=== PATIENT | female | born 1930 | race Caucasian/White ===

== ENCOUNTER 2018-04-08 14:07 | Observation (INO) | payer OTHER ==
--- NOTE | 2018-04-08 14:24 | EDPHY ---
H & P Time Seen by Provider: 04/08/18 14:18 HPI/ROS: CHIEF COMPLAINT: Head injury HISTORY OF PRESENT ILLNESS: 87-year-old woman on warfarin arrives by EMS after losing her balance and falling and hitting her head. Her daughter who is here with her describes the patient losing her balance when transitioning from the walker to the car landing on the right side. She has a wound on her right forehead and pain in her right hip. No loss of consciousness. The daughter describes the patient is being confused. The patient says she has a little bit of a headache but it is very mild. Pain does not radiate. Does not have neck pain or weakness or numbness in extremities. REVIEW OF SYSTEMS: Eye: No double vision ENT: no sore throat Cardiac: no chest pain or syncope Pulmonary: Not short of breath Abdomen: No abdominal pain or vomiting Musculoskeletal: Left wrist is in a cast from a previous fracture Skin: Bruising on the right forehead Neuro: HPI Constitutional: no fever : no urinary symptoms A comprehensive 10 point review of systems is otherwise negative aside from elements mentioned in the history of present illness. PAST MEDICAL HISTORY: H&P dated 09/01/[address] Simpson. Includes atrial fibrillation on warfarin, CHF, hypertension, depression, hypothyroid. Bilateral total hip arthroplasties. Social history: Here with her daughter General Appearance: Alert and conversant, cooperative. Eyes: No scleral icterus. Pupils equal and reactive. ENT, Mouth: Normal mucous membranes. Right forehead hematoma. Respiratory: Normal respiratory effort, breath sounds equal, lungs are clear to auscultation. Cardiovascular: Regular rate and rhythm. Gastrointestinal: Abdomen is soft and non tender. Neurological: Alert, face symmetric, normal motor and sensory in extremities. Patient knows the year she is born but does not know what this year is or how old she is. Skin: Bruising over the right forehead and parietal region. Musculoskeletal: Left wrist in a cast. Good range of motion of both upper extremities and left lower extremity. Pelvis is stable. She has some pain in the right hip but it is not worse with axial loading or rotation. No other right lower extremity tenderness. No spinal tenderness cervical thoracic or lumbar. Psychiatric: Not agitated. Emergency Department course/MDM: Emergent CT head and cervical spine. Labs to include protime. Right hip x-ray. 1449: CT reviewed with Finer shows small subdural or other blood collection just under her scalp hematoma on the right. Discussed with Dr. Michel from Neurosurgery at this time. Patient is kept in a collar. 1458: Discussed results with patient and family, vitamin K and KCentra ordered from the reversal anticoagulation set. Reversal discussed and consented with the daughters. Admission to Trauma Service. 1504: Dr. Plasencia to admit. 1515: Right hip x-ray personally interpreted as negative for fracture or dislocation. Head of bed up 30 degrees, maintained a cervical collar. Smoking Status: Former smoker Constitutional: Initial Vital Signs Temperature (C) 36.6 C 04/08/18 14:07 Heart Rate 78 04/08/18 14:07 Respiratory Rate 17 04/08/18 14:07 Blood Pressure 180/109 H 04/08/18 14:07 O2 Sat (%) 92 04/08/18 14:07 O2 Delivery Mode Nasal Cannula O2 (L/minute) 2 Allergies/Adverse Reactions: lisinopril Allergy (Verified 04/08/18 14:24) Other-Enter Comments Home Medications: Medication Instructions Recorded Calcium Carb W/Vit D [Calcium Carb 500 mg PO DAILY 07/31/13 W/Vit D 500/200 (*)] Furosemide [Lasix 20 MG (*)] 20 mg PO DAILY 07/31/13 Levothyroxine [Synthroid 100 mcg 100 mcg PO DAILY06 07/31/13 (*)] Sertraline HCl [Zoloft 50mg (*)] 50 mg PO DAILY 07/31/13 Acetaminophen [Tylenol 325mg (*)] 650 mg PO Q6 PRN 09/01/16 Famotidine 20 mg PO DAILY 09/01/16 Losartan Potassium 50 mg PO DAILY 09/01/16 Metoprolol Tartrate 25 mg PO BID 09/01/16 Metoprolol Tartrate 100 mg PO BID 09/01/16 Warfarin Sodium [Coumadin 5MG (*)] 5 mg PO SUMOWEFR 09/01/16 Digoxin [Digox] 125 mcg PO DAILY 04/08/18 Furosemide [Lasix 40 MG (*)] 40 mg PO DAILY@12 04/08/18 Warfarin Sodium [Coumadin 5MG (*)] 2.5 mg PO TUTHSA 04/08/18 Medical Decision Making - Diagnostics EKG Interpretation: 12-lead EKG interpreted by me; official reading is in trace master. My interpretation is atrial fibrillation rate [address] depression. Imaging Results: Imaging Impressions Cervical Spine CT 04/08/18 14:22 Impression: 1. No acute abnormality seen about the cervical spine. 2. Previous bony fusion from C4 through C6 with marked degenerative disk disease above and below this. 3. Facet hypertrophy on the right at C2-C3 and bilaterally at C6-C7 and C7-T1. Findings discussed with Elias Posadas M.D. at 1450 hour, 04/08/2018. Head CT 04/08/18 14:22 Impression: 1. Increased density blood collection underlying the right temporal bone at the level of the sylvian fissure that could represent a tiny epidural hematoma versus small subdural hematoma collection. There is no associated fracture of the calvarium. 2. No hemorrhage, mass effect, or definite acute peripheral infarct. 3. Moderate nonspecific hypodensities in the white matter of bilateral cerebral hemispheres. Differential diagnosis includes microvascular ischemic disease, post-infectious/post-inflammatory sequela, atypical demyelinating disease, or migraine-related sequela. Small white matter lacunar infarcts may also have this appearance. 4. Moderate atrophy. If symptoms worsen, additional imaging may be necessary. Findings discussed with Elias Posadas M.D. at 1450 hour, 04/08/2018. Hip X-Ray 04/08/18 14:23 Impression: Nothing acute identified. Imaging: Discussed imaging studies w/ score caller Radiologist Differential Diagnosis: Differential diagnosis considered for head injury including but not limited to concussion, skull fracture, intraparenchymal contusion, subarachnoid, subdural and epidural hematoma. Critical Care Time: Critical care time spent by me, Dr. Posadas, exclusively with the care of this patient was 30 minutes, exclusive of PA or MICA MACHINE OPERATOR time and exclusive of separate procedures. The organ system at risk was neurologic and hematologic and I ordered emergent reversal of warfarin and consultation with Neurosurgery to stabilize the patient and prevent worsening of the patient's condition. - Data Points Laboratory Results: Laboratory Results 04/08/18 14:25 04/08/18 14:25 04/08/18 04/08/18 04/08/18 14:25 14:25 14:25 WBC 7.97 10^3/uL 10^3/uL (3.80-9.50) RBC 4.66 10^6/uL 10^6/uL (4.18-5.33) Hgb 14.7 g/dL g/dL (12.6-16.3) Hct 43.5 % % (38.0-47.0) MCV 93.3 fL fL (81.5-99.8) MCH 31.5 pg pg (27.9-34.1) MCHC 33.8 g/dL g/dL (32.4-36.7) RDW 14.8 % % (11.5-15.2) Plt Count 234 10^3/uL 10^3/uL (150-400) MPV 9.7 fL fL (8.7-11.7) Neut % (Auto) 55.4 % % (39.3-74.2) Lymph % (Auto) 31.0 % % (15.0-45.0) Shannon % (Auto) 10.2 % % (4.5-13.0) Eos % (Auto) 2.3 % % (0.6-7.6) Baso % (Auto) 0.5 % % (0.3-1.7) Nucleat RBC Rel Count 0.0 % % (0.0-0.2) Absolute Neuts (auto) 4.42 10^3/uL 10^3/uL (1.70-6.50) Absolute Lymphs (auto) 2.47 10^3/uL 10^3/uL (1.00-3.00) Absolute Monos (auto) 0.81 10^3/uL H 10^3/uL (0.30-0.80) Absolute Eos (auto) 0.18 10^3/uL 10^3/uL (0.03-0.40) Absolute Basos (auto) 0.04 10^3/uL 10^3/uL (0.02-0.10) Absolute Nucleated RBC 0.00 10^3/uL 10^3/uL (0-0.01) Immature Gran % 0.6 % % (0.0-1.1) Immature Gran # 0.05 10^3/uL 10^3/uL (0.00-0.10) PT 25.5 SEC H SEC (12.0-15.0) INR 2.32 H (0.83-1.16) APTT 34.4 SEC SEC (23.0-38.0) Sodium 142 mEq/L mEq/L (135-145) Potassium 4.3 mEq/L mEq/L (3.3-5.0) Chloride 105 mEq/L mEq/L (97-110) Carbon Dioxide 25 mEq/l mEq/l (22-31) Anion Gap 12 mEq/L mEq/L (8-16) BUN 22 mg/dL mg/dL (7-23) Creatinine 1.2 mg/dL H mg/dL (0.6-1.0) Estimated GFR 42 Glucose 92 mg/dL mg/dL (70-100) Calcium 9.2 mg/dL mg/dL (8.5-10.4) Patient ABO/Rh Antibody Screen 04/08/18 14:25 WBC RBC Hgb Hct MCV MCH MCHC RDW Plt Count MPV Neut % (Auto) Lymph % (Auto) Shannon % (Auto) Eos % (Auto) Baso % (Auto) Nucleat RBC Rel Count Absolute Neuts (auto) Absolute Lymphs (auto) Absolute Monos (auto) Absolute Eos (auto) Absolute Basos (auto) Absolute Nucleated RBC Immature Gran % Immature Gran # PT INR APTT Sodium Potassium Chloride Carbon Dioxide Anion Gap BUN Creatinine Estimated GFR Glucose Calcium Patient ABO/Rh A POSITIVE Antibody Screen NEGATIVE Medications Given: Discontinued Medications Prothrombin Complex Concent (Human) (Kcentra) 2,500 unit in 100 mls @ 0 mls/hr IV ONCE ONE; Per Protocol PRN Reason: Protocol Stop: 04/08/18 14:53 Last Admin: 04/08/18 15:44 Dose: 100 mls Phytonadione 10 mg/ Sodium (Chloride) 51 mls @ 102 mls/hr IV ONCE ONE Stop: 04/08/18 15:21 Last Admin: 04/08/18 15:15 Dose: 51 mls Departure - Departure Disposition: [facility] Acute Clinical Impression: Traumatic subdural hematoma Qualifiers: Encounter type: initial encounter Loss of consciousness presence/duration: without LOC Qualified Code(s): S06.5X0A - Traumatic subdural hemorrhage without loss of consciousness, initial encounter Condition: Serious
[2018-04-08 14:32] LABS: PLATELET COUNT 234 10^3/uL (150-400)
[2018-04-08 14:41] LABS: INR 2.32 (0.83-1.16); PROTIME(PATIENT) 25.5 SEC (12.0-15.0)
[2018-04-08] MEDS ORDERED: HUMAN PROTHROMBIN COMPLX(PCC) 2,500 UNIT/100 ML VIAL IV ONE (14:52)
[2018-04-08] MEDS ORDERED: PHYTONADIONE 10 MG in NS 50 ML IV ONE (14:52)
--- NOTE | 2018-04-08 14:57 | CPEKG ---
Heart Rate: 94 RR Interval: 638 QRSD Interval: 90 QT Interval: 392 QTC Interval: 491 QRS [place]: 23 T Wave [place]: 257 EKG Severity - ABNORMAL ECG - EKG Impression: ATRIAL FIBRILLATION EKG Impression: PROBABLE LVH WITH SECONDARY REPOL ABNRM EKG Impression: ST DEPRESSION, CONSIDER ISCHEMIA, ANT-LAT LDS EKG Impression: BORDERLINE PROLONGED QT INTERVAL Electronically Signed By: Elias Posadas 08-Apr-2018 15:11:23
[2018-04-08] MEDS: ACETAMINOPHEN 325 MG TAB PO PRN (18:50)
--- NOTE | 2018-04-08 19:08 | GCON ---
[f rep st] CONSULTATION NEUROSURGERY CONSULT DATE OF CONSULTATION: 04/08/2018 The patient was seen at approximately 3 p.m. in the emergency department at [facility]. HPI: The patient is an 87-year-old woman who is on Coumadin for atrial fibrillation, who arrived by EMS after losing her balance and falling, hitting her head on the floor. Her daughter is with her an d she said that she lost her balance when she was transitioning from her walker to the car. She had a fall last week and broke her left arm and likely was not holding onto the walker due to this. She hit her right forehead on the ground and had a brief loss of consciousness of less than [address] she woke up, she was a little bit confused, but otherwise completely normal. She currently has a very mild headache, but nothing of much significance. She denies any other neurologic symptoms. Walker davies has some pain in her left arm, but otherwise no symptoms. She had a CT in the emergency department , which showed a very small right temporal subdural hematoma without any mass effect or shift. She h as extensive cerebral atrophy. Her INR was 2.3. REVIEW OF SYSTEMS: A 10-point review of systems is negative other than described above in the HPI. PAST MEDICAL HISTORY: 1. Atrial fibrillation. 2. Congestive heart failure. 3. Hypertension. 4. Depression. 5. Hypothyroidism. 6. Bilateral total hip arthroplasties. SOCIAL HISTORY: The patient presents with her daughters. She is a lifelong nonsmoker and denies any alcohol or other drug use. FAMILY HISTORY: The family history is reviewed but is noncontributory to this admission. PHYSICAL EXAMINATION: VITAL SIGNS: Currently, she is afebrile with normal stable vital signs. GENE RAL: She is awake, alert, and oriented x3. NEUROLOGICAL: She does have to think a few seconds abou t some more specific questions, but otherwise is clearing completely. Her cranial nerves 2-12 are gr ossly normal. She has 5/5 strength in all muscle groups of the upper and lower extremities bilateral ly. The left wrist is in a cast from her previous fracture. Her sensation is normal and deep tendon reflexes are normal. IMAGING REVIEW: See HPI. LABORATORY REVIEW: White count is 7.9, hemoglobin 14.7, hematocrit is 43.5, platelet count is 234,00 0. Her INR is 2.3, PTT is 34.4. Sodium is 142, potassium 4.3, BUN is 22, creatinine 1.2, glucose is 92. ASSESSMENT/PLAN: The patient is an 87-year-old woman status post a fall from standing with a very sm all right temporal subdural hematoma. Given that she is on Coumadin, there is a small risk that this may increase in size, but overall it is unlikely. I agree with taking off Coumadin for about 7 days ' time and possibly some gentle reversal with vitamin K. I do not think anything more aggressive yasmin n this is necessary unless she should show any new signs or symptoms. Recommend repeating her CAT sc an in the morning to be sure that the bleed is stable, at which time if it is, she could be discharge d home from a neurosurgical standpoint. I would recommend to q.2 hour neuro checks until that time. Please call us with any further questions or concerns, and certainly any changes in her neurologic ex am. Thanks for the kind consult. Sincerely, /[id number]/JEFFERSON
[2018-04-08] MEDS ORDERED: ACETAMINOPHEN 325 MG TAB PO PRN (20:02)
[2018-04-08] MEDS: METOPROLOL TARTRATE 100 MG TAB PO SCH (21:05)
[2018-04-08] MEDS: METOPROLOL TARTRATE 25 MG TAB PO SCH (21:05)
[2018-04-09 05:22] LABS: PLATELET COUNT 214 10^3/uL (150-400)
[2018-04-09] MEDS: ACETAMINOPHEN 325 MG TAB PO PRN ×3 (05:39→20:41)
[2018-04-09] MEDS: LEVOTHYROXINE 100 MCG TAB PO SCH (05:40)
[2018-04-09 05:54] LABS: INR 1.05 (0.83-1.16); PROTIME(PATIENT) 13.9 SEC (12.0-15.0)
[2018-04-09] MEDS: DIGOXIN 125 MCG TAB PO SCH (09:48)
[2018-04-09] MEDS: FAMOTIDINE 20 MG TAB PO SCH (09:48)
[2018-04-09] MEDS: CALCIUM CARB W/VIT D 500 MG TAB PO SCH (09:49)
[2018-04-09] MEDS: SERTRALINE HCL 50 MG TAB PO SCH (09:49)
[2018-04-09] MEDS: FUROSEMIDE 20 MG TAB PO SCH (09:49)
[2018-04-09] MEDS: METOPROLOL TARTRATE 25 MG TAB PO SCH ×2 (09:50→20:10)
[2018-04-09] MEDS: METOPROLOL TARTRATE 100 MG TAB PO SCH ×2 (09:50→20:10)
[2018-04-09] MEDS: LOSARTAN POTASSIUM 50 MG TAB PO SCH (09:50)
[2018-04-09] MEDS ORDERED: TEARS/DEXTRAN 70/HYPROMELLOSE 15 ML OPHT.BTL EACHEYE PRN (10:11)
--- NOTE | 2018-04-09 11:28 | NEUSURGPN ---
Assessment/Plan: Assessment: 87 yr old F s/p fall with small right temporal subdural hematoma Plan: -Repeat CT this am shows increase in scalp hematoma. SDH stable -Q 4hour neuro checks -Ok to discharge from neurosurgery standpoint -Patient may resume Coumadin in 7 days -Ok to start DVT ppx on 04/11/18 -We will sign off and have patient follow up as out patient in 2-3 weeks. No repeat imaging needed unless change in status/exam. -Red flag symptoms discussed with patient and family at bedside -patient neurologically intact -Discussed patient with Dr Avila Subjective: Sitting in chair, denies any headache Objective: AxO x3 PERRLA CN 2-12 grossly intact aside from mild left facial droop which is chronic 5/5 BUE, BLE Neuro Check Frequency: per routine Urinary Catheter in Place: No - Physician Discussed Patient with Dr.: Avila Neurosurgery Physical Exam - Vitals, I&O, Labs I and O 04/08/18 04/09/18 04/10/18 05:59 05:59 05:59 Intake Total 650 Output Total 250 Balance 400 Weight 66.7 kg Intake: Oral (ml) 300 IV Infused (ml) 350 Output: Urine (ml) 250 Bedpan 250 Other: Number of Voids 4 Bedpan 1 Vital Signs Temp Pulse Resp BP Pulse Ox 37.0 C 67 26 H 130/65 H 96 04/09/18 01:00 04/09/18 09:48 04/09/18 08:00 04/09/18 09:50 04/09/18 08:00 Laboratory Results 04/09/18 05:10 04/09/18 05:10 ICD10 Worksheet Patient Problems: Problems Problem Status Onset Traumatic subdural hematoma Acute Acute decompensated heart failure Acute Anemia Acute Atrial fibrillation Acute Atrial fibrillation with RVR Acute Diastolic CHF, acute Acute Diastolic heart failure secondary to other etiology Acute Fatigue Acute Hypertension Acute Hypoxemia Acute
[2018-04-09] MEDS ORDERED: FUROSEMIDE 40 MG TAB PO SCH (12:00)
--- NOTE | 2018-04-09 12:41 | SOAPPROG ---
SOAP Progress Note Assessment/Plan: Assessment: Plan: Subjective: s/p head inj neuro intact- neurosurg has signed off. alert and oriented lungs clear heart nml s1s2 no m tertiary exam done- no new injuries appreciated assess: sheng s/p chi. may dc today if steady on feet. Objective: Vital Signs Temp Pulse Resp BP Pulse Ox 37.0 C 72 24 H 119/63 93 04/09/18 01:00 04/09/18 12:00 04/09/18 12:00 04/09/18 12:00 04/09/18 12:00 Laboratory Results 04/09/18 05:10 04/09/18 05:10 04/08/18 04/09/18 04/10/18 05:59 05:59 05:59 Intake Total 650 Output Total 250 200 Balance 400 -200 PT 13.9 SEC (12.0-15.0) 04/09/18 05:10 INR 1.05 (0.83-1.16) 04/09/18 05:10 ICD10 Worksheet Patient Problems: Problems Problem Status Onset Traumatic subdural hematoma Acute Acute decompensated heart failure Acute Anemia Acute Atrial fibrillation Acute Atrial fibrillation with RVR Acute Diastolic CHF, acute Acute Diastolic heart failure secondary to other etiology Acute Fatigue Acute Hypertension Acute Hypoxemia Acute
--- NOTE | 2018-04-09 14:37 | ASMTCMCOM ---
CM Note CM Note Notes: Pt in for SDH after fall at home where she lives alone. Pt has a dghtr local. Pt with with depression, CHF, hypertension. Pt had recent wrist fx which is casted. OT/PT/PROCED TECH rec inpatient rehab, eval order is in. Inpatient rehab to assess Wednesday. Cm to follow. Date Signed: 04/09/2018 02:37 PM Electronically Signed By:MIGUELINA Neumann
[2018-04-10] MEDS: LEVOTHYROXINE 100 MCG TAB PO SCH (05:03)
[2018-04-10] MEDS: ACETAMINOPHEN 325 MG TAB PO PRN ×3 (05:03→19:56)
[2018-04-10] MEDS: FUROSEMIDE 20 MG TAB PO SCH ×2 (08:48→11:28)
[2018-04-10] MEDS: LOSARTAN POTASSIUM 50 MG TAB PO SCH (08:48)
[2018-04-10] MEDS: SERTRALINE HCL 50 MG TAB PO SCH (08:49)
[2018-04-10] MEDS: METOPROLOL TARTRATE 25 MG TAB PO SCH ×2 (08:49→19:54)
[2018-04-10] MEDS: CALCIUM CARB W/VIT D 500 MG TAB PO SCH (08:49)
[2018-04-10] MEDS: METOPROLOL TARTRATE 100 MG TAB PO SCH ×2 (08:50→19:56)
[2018-04-10] MEDS: FAMOTIDINE 20 MG TAB PO SCH (08:50)
[2018-04-10] MEDS ORDERED: FUROSEMIDE 20 MG TAB PO ONE (10:30)
[2018-04-10] MEDS: DIGOXIN 125 MCG TAB PO SCH (11:27)
--- NOTE | 2018-04-10 11:37 | SOAPPROG ---
SOAP Progress Note Assessment/Plan: Assessment: Plan: Subjective: vss, getting to bathroom with assist and walker. going to rehab tomorrow. nothing new to add. Objective: Vital Signs Temp Pulse Resp BP Pulse Ox 36.7 C 68 16 132/73 H 92 04/10/18 08:00 04/10/18 11:27 04/10/18 08:00 04/10/18 08:00 04/10/18 08:00 Laboratory Results 04/09/18 05:10 04/09/18 05:10 04/09/18 04/10/18 04/11/18 05:59 05:59 05:59 Intake Total 650 Output Total 250 925 26 Balance 400 -925 -26 PT 13.9 SEC (12.0-15.0) 04/09/18 05:10 INR 1.05 (0.83-1.16) 04/09/18 05:10 ICD10 Worksheet Patient Problems: Problems Problem Status Onset Traumatic subdural hematoma Acute Acute decompensated heart failure Acute Anemia Acute Atrial fibrillation Acute Atrial fibrillation with RVR Acute Diastolic CHF, acute Acute Diastolic heart failure secondary to other etiology Acute Fatigue Acute Hypertension Acute Hypoxemia Acute
--- NOTE | 2018-04-10 15:19 | ASMTCMCOM ---
CM Note CM Note Notes: Chart reviewed. Inpatient to assess for possible placement tomorrow. CM to follow. Plan: TBD Date Signed: 04/10/2018 03:19 PM Electronically Signed By:Chanell Quintanilla RN
[2018-04-11] MEDS: ACETAMINOPHEN 325 MG TAB PO PRN ×4 (04:57→20:55)
[2018-04-11] MEDS: LEVOTHYROXINE 100 MCG TAB PO SCH (04:58)
--- NOTE | 2018-04-11 10:29 | TRAUMAPN ---
Trauma Progress Note Assessment/Plan: 87 Y F c previous fall and resultant arm fracture now casted, no s/p new fall while anticoagulated and INR 2.3. Small R temporal SDH. Stable on repeat CT. NS signed off. Scalp hematoma. Seen and examined c Dr. Plasencia. Dispo: possibly d/c today pending placement. S: no complaints. eager to go to rehab. happy to see Dr. Plasencia this am. O: just waking up, alert, nad, oriented. ctab anteriorly abd soft, nt L forearm in cast wwp Objective: Vital Signs Temp Pulse Resp BP Pulse Ox 36.9 C 61 15 169/77 H 89 L 04/11/18 08:00 04/11/18 08:00 04/11/18 08:00 04/11/18 08:00 04/11/18 08:00 Laboratory Results 04/09/18 05:10 04/09/18 05:10 04/10/18 04/11/18 04/12/18 05:59 05:59 05:59 Intake Total 500 Output Total 925 526 200 Balance -925 -26 -200 PT 13.9 SEC (12.0-15.0) 04/09/18 05:10 INR 1.05 (0.83-1.16) 04/09/18 05:10
[2018-04-11] MEDS: FAMOTIDINE 20 MG TAB PO SCH (10:51)
[2018-04-11] MEDS: METOPROLOL TARTRATE 25 MG TAB PO SCH ×2 (10:51→20:57)
[2018-04-11] MEDS: CALCIUM CARB W/VIT D 500 MG TAB PO SCH (10:51)
[2018-04-11] MEDS: DIGOXIN 125 MCG TAB PO SCH (10:53)
[2018-04-11] MEDS: LOSARTAN POTASSIUM 50 MG TAB PO SCH (10:53)
[2018-04-11] MEDS: METOPROLOL TARTRATE 100 MG TAB PO SCH ×2 (10:53→20:58)
[2018-04-11] MEDS: SERTRALINE HCL 50 MG TAB PO SCH (10:54)
[2018-04-11] MEDS: FUROSEMIDE 40 MG TAB PO SCH (10:54)
[2018-04-11] MEDS: FUROSEMIDE 20 MG TAB PO SCH (14:25)
--- NOTE | 2018-04-11 15:47 | ASMTCMCOM ---
CM Note CM Note Notes: Pt clinically accepted at [facility] inpatient rehab which is pt ideal d/c plan. Insurance now needs to authorize. CM to follow. D/c plan of care: [facility] inpatient rehab pending insurance authorization Date Signed: 04/11/2018 03:43 PM Electronically Signed By:MIGUELINA Neumann
--- NOTE | 2018-04-11 21:33 | SOAPPROG ---
SOAP Progress Note Assessment/Plan: Assessment: Seen this a.m. With my PA Xiomara Noguera/please refer to her note Patient comfortable Chest clear HEENT minimal bruising and swelling Abdomen soft Plan: To rehab soon 04/11/18 21:32 Objective: Vital Signs Temp Pulse Resp BP Pulse Ox 36.6 C 61 17 116/52 L 90 L 04/11/18 20:00 04/11/18 20:58 04/11/18 20:00 04/11/18 20:58 04/11/18 20:00 Laboratory Results 04/09/18 05:10 04/09/18 05:10 04/10/18 04/11/18 04/12/18 05:59 05:59 05:59 Intake Total 500 350 Output Total 925 526 350 Balance -925 -26 0 PT 13.9 SEC (12.0-15.0) 04/09/18 05:10 INR 1.05 (0.83-1.16) 04/09/18 05:10 ICD10 Worksheet Patient Problems: Problems Problem Status Onset Traumatic subdural hematoma Acute Acute decompensated heart failure Acute Anemia Acute Atrial fibrillation Acute Atrial fibrillation with RVR Acute Diastolic CHF, acute Acute Diastolic heart failure secondary to other etiology Acute Fatigue Acute Hypertension Acute Hypoxemia Acute
--- NOTE | 2018-04-11 22:48 | GHP ---
[f rep st] PREOP HISTORY AND PHYSICAL DATE OF ADMISSION: 04/08/2018 HISTORY OF PRESENT ILLNESS: Patient is an 87-year-old female who tripped and fell at home, sustainin g a brief loss of consciousness. She was brought to the ER by her daughter. She denies any loss of consciousness, although she does not clearly remember all the events. She is on Coumadin for atrial fibrillation. A CT scan revealed a minimal subdural hematoma. She is admitted at this time for obse rvation. PAST MEDICAL HISTORY: Atrial fibrillation on Coumadin, congestive heart failure, depression, bilater al total hip arthroplasties, hypertension, hypothyroidism, congestive heart failure. Past history includes a left wrist fracture from approximately 2 weeks ago which is in a cast. REVIEW OF SYMPTOMS: Full 10-point review of systems is negative other than related to the HPI and pa st history. SOCIAL HISTORY: She does not smoke. She is here with her daughter. MEDICATIONS: Zoloft, losartan, metoprolol, Coumadin, digoxin, Lasix, levothyroxine, calcium, and [place]. ALLERGIES: Lisinopril. PHYSICAL EXAMINATION: GENERAL: An alert 87-year-old female in no acute distress. HEAD: Right amaya orbital abrasion and hematoma. She is PERRLA and nonicteric with no oral lesions. NECK: Supple and nontender with full range of motion. CHEST: Clear to auscultation and percussion and symmetric wit h no palpable rib fractures. CARDIAC: Irregular rhythm. ABDOMEN: Soft and nontender without ryan s or organomegaly or hernias. SKIN: There is some bruising over the right forehead and episcopalian area. MUSCULOSKELETAL: Her left wrist is in a cast. She has good range of motion of all her other extre mities and full pulses. PELVIS: Intact and nontender. PSYCHIATRIC: She is alert, oriented, and co operative. NEURO: She is alert and symmetric with normal motor and sensory exam in her extremities. Cranial nerves are intact. BACK: No spinal tenderness. IMPRESSION: Closed head injury with possible small subdural in a patient on anticoagulation with Cou madin. She did complain of some right hip pain, and x-rays were negative. PLAN: Admit for observation. Neurosurgery consultation. /[id number]/MODL
[2018-04-12] MEDS: LEVOTHYROXINE 100 MCG TAB PO SCH (05:12)
[2018-04-12] MEDS: ACETAMINOPHEN 325 MG TAB PO PRN ×2 (09:25→13:34)
[2018-04-12] MEDS: DIGOXIN 125 MCG TAB PO SCH (09:26)
[2018-04-12] MEDS: METOPROLOL TARTRATE 100 MG TAB PO SCH (09:26)
[2018-04-12] MEDS: CALCIUM CARB W/VIT D 500 MG TAB PO SCH (09:26)
[2018-04-12] MEDS: FAMOTIDINE 20 MG TAB PO SCH (09:26)
[2018-04-12] MEDS: SERTRALINE HCL 50 MG TAB PO SCH (09:26)
[2018-04-12] MEDS: FUROSEMIDE 40 MG TAB PO SCH (09:26)
[2018-04-12] MEDS: LOSARTAN POTASSIUM 50 MG TAB PO SCH (09:27)
[2018-04-12] MEDS: METOPROLOL TARTRATE 25 MG TAB PO SCH (09:27)
[2018-04-12] MEDS: FUROSEMIDE 20 MG TAB PO SCH (12:45)
--- NOTE | 2018-04-12 12:56 | PDIAF ---
- Diagnosis Diagnosis: s/p fall with sdh Code Status: Do Not Resuscitate - Medication Management Discharge Medications: Medications to Continue on Transfer Calcium Carb W/Vit D [Calcium Carb W/Vit D 500/200 (*)] 500 mg PO DAILY [Last Taken 04/08/18] Levothyroxine [Synthroid 100 mcg (*)] 100 mcg PO DAILY06 07/31/13 [Last Taken 08:00] Sertraline HCl [Zoloft 50mg (*)] 50 mg PO DAILY 07/31/13 [Last Taken 04/08/18] Acetaminophen [Tylenol 325mg (*)] 650 mg PO Q6 PRN 09/01/16 [Last Taken 04/07/18 ] Famotidine 20 mg PO DAILY 09/01/16 [Last Taken 04/08/18] Losartan Potassium 50 mg PO DAILY 09/01/16 [Last Taken 04/08/18] Metoprolol Tartrate 25 mg PO BID 09/01/16 [Last Taken 04/08/18] Metoprolol Tartrate 100 mg PO BID 09/01/16 [Last Taken 04/08/18] Warfarin Sodium [Coumadin 5MG (*)] 5 mg PO SUMOWEFR 09/01/16 [Last Taken ] Digoxin [Digox] 125 mcg PO DAILY 04/08/18 [Last Taken 04/08/18] Warfarin Sodium [Coumadin 5MG (*)] 2.5 mg PO TUTHSA 04/08/18 [Last Taken ] Acetaminophen [Tylenol 325mg (*)] 325 - 650 mg PO Q4HRS PRN tab 04/12/18 [Last Taken Unknown] Furosemide [Lasix 20 MG (*)] 20 mg PO DAILY@1200 tab 04/12/18 [Last Taken Unknown] Furosemide [Lasix 40 MG (*)] 40 mg PO DAILY tab 04/12/18 [Last Taken Unknown] Tears/Dextran 70/Hypromellose [Natural Balance Tears (*)] 2 drop EACHEYE PRN PRN opht.btl 04/12/18 [Last Taken Unknown] Additional Medication Instructions: Restart Warfarin on 04/14/2018 Discharge Medications: Refer to the Discharge Home Medication list for PRN reason. - Orders Diet Recommendation: no restrictions on diet Additional Instructions: Resume Warfarin on 04/14/2018 Use left upper extremity as tolerated. Dr. Yap placed in a cast from previous fall - Follow Up Care Current Providers and Referrals: Demar Avila MD [Medical Doctor] - follow up in 2 weeks Patient,NotPresent [Unknown] - As per Instructions Sascha Yap MD [Medical Doctor] - (as previously scheduled)
[2018-04-12 13:02] VITALS: BP 122/74
--- NOTE | 2018-04-12 14:41 | ASMTCMCOM ---
CM Note CM Note Notes: Pt medically stable for d/c to [facility] inpatient rehab. Pt and dghtr agree to pay for [employer] transport at 1200. Orders to be obtained via [employer]. EVIN Mcfarlane to call report. Date Signed: 04/12/2018 02:40 PM Electronically Signed By:MIGUELINA Neumann
--- NOTE | 2018-04-12 14:41 | ASDISCHSUM ---
Discharge Information Plan Status:Inpatient Rehab Medically Cleared to Leave: Discharge Date:04/12/2018 02:30 PM CM D/C Disposition:[place] [facility] ADT D/C Disposition:[facility] IP Projected Discharge Date:04/12/2018 11:00 AM Transportation at D/C:Wheelchair Van Discharge Delay Reason: Follow-Up Date:04/12/2018 11:00 AM Discharge Slot: Final Diagnosis: Placement Information Referral Type:Rehabilitation Hospital Referral ID:[id number] Provider Name:[facility] Address 1:[address] [facility] Phone Number: Address 2: Fax Number: [facility]:[place] Selection Factors: State:[place] Referral Type:*[facility]cf/SNF Referral ID:[id number] Provider Name: Address 1: Phone Number: Address 2: Fax Number: City: Selection Factors: State: Patient Contact Information Contact Name:KIYA Relationship:Daughter Address:[address] City:[place] Alternate Phone: State/Zip Code:[place] [address] Email: Financial Information Financial Class:Medicare Advantage Plans Primary Plan Desc:[facility] MEDICARE COMPLETE Primary Plan Number:[id number] Secondary Plan Desc: Secondary Plan Number: Assessment Information [facility] CM Progress Note CM Note CM Note Notes: Pt in for SDH after fall at home where she lives alone. Pt has a dghtr local. Pt with with depression, CHF, hypertension. Pt had recent wrist fx which is casted. OT/PT/REWIND OPERATOR rec inpatient rehab, eval order is in. Inpatient rehab to assess Wednesday. Cm to follow. Date Signed: 04/09/2018 02:37 PM Electronically Signed By:MIGUELINA Neumann LACE LACE Length of stay for Answers: 4-6 days current admission Acuity / Level of Answers: No Care: Did the patient have an inpatient admission? # of Emergency department Answers: 1-2 visits in the last 6 months Score: 5 Date Signed: 04/12/2018 02:38 PM Electronically Signed By:MIGUELINA Neumann [facility] CM Progress Note CM Note CM Note Notes: Chart reviewed. Inpatient to assess for possible placement tomorrow. CM to follow. Plan: TBD Date Signed: 04/10/2018 03:19 PM Electronically Signed By:Chanell Quintanilla RN [facility] CM Progress Note CM Note CM Note Notes: Pt clinically accepted at [facility] inpatient rehab which is pt ideal d/c plan. Insurance now needs to authorize. CM to follow. D/c plan of care: [facility] inpatient rehab pending insurance authorization Date Signed: 04/11/2018 03:43 PM Electronically Signed By:MIGUELINA Neumann [facility] CM Progress Note CM Note CM Note Notes: Pt medically stable for d/c to [facility] inpatient rehab. Pt and dghtr agree to pay for [employer] at 1200. Orders to be obtained via [employer]. EVIN Mcfarlane to call report. Date Signed: 04/12/2018 02:40 PM Electronically Signed By:MIGUELINA Neumann Intervention Information
--- NOTE | 2018-04-13 18:22 | TRAUMAPN ---
Trauma Progress Note Assessment/Plan: 87 Y F c previous fall and resultant arm fracture now casted, no s/p new fall while anticoagulated and INR 2.3. Small R temporal SDH. Stable on repeat CT. NS signed off. Scalp hematoma. Accepted at rehab DC F/U with Dr. Avila and with ortho as previously scheduled Had discussion about avoiding falls, slowing down, understanding that having an accident due to urinary incontinence is better than a SDH S: no complaints. Delighted to go to rehab. O: Sitting in chair, alert, nad, oriented. Hematoma R temporal ctab anteriorly regular rate L forearm in cast Objective: Vital Signs Temp Pulse Resp BP Pulse Ox 37.3 C 70 16 122/74 H 87 L 04/12/18 08:00 04/12/18 11:55 04/12/18 08:00 04/12/18 11:55 04/12/18 11:55 Laboratory Results 04/09/18 05:10 04/09/18 05:10 04/12/18 04/13/18 04/14/18 05:59 05:59 05:59 Intake Total 650 Output Total 850 Balance -200 PT 13.9 SEC (12.0-15.0) 04/09/18 05:10 INR 1.05 (0.83-1.16) 04/09/18 05:10
--- NOTE | 2018-04-22 09:58 | GDS ---
[f rep st] DISCHARGE SUMMARY DISCHARGE DIAGNOSES: 1. Subdural hematoma related to trip and fall. 2. History of permanent atrial fibrillation, on anticoagulation. 3. History of heart failure with preserved ejection fraction. 4. Hypertension. 5. Mild to moderate mitral regurgitation. 6. Moderate tricuspid regurgitation. 7. History of mild to moderate pulmonary hypertension. 8. Recent left arm fracture. PROCEDURES: 1. 04/08/2018, cervical spine CT. 2. 04/08/2018, head CT. 3. 04/08/2018, hip x-ray. 4. 04/08/2018, shoulder x-ray. 5. 04/09/2018, repeat head CT. CONSULTATIONS: Neurosurgery. BRIEF HISTORY: Please see dictated H and P by Dr. Bertin Plasencia for complete details. In brief. the patient is an 87-year-old female who is on Coumadin for her permanent atrial fibrillation. She had a recent trip and fall as she lost her balance when transitioning from her walker to the car. She larry d a fall the previous week with resultant arm fracture that was casted. Her fall resulted in her hit ting her right forehead to the ground with associated brief loss of consciousness. HOSPITAL COURSE BY PROBLEM: 1. Subdural hematoma. This is small and stable on repeat CT. 2. Scalp hematoma. 3. Recent fall with arm fracture. She will need follow up with Ortho for this. RESULTS PENDING: None. PHYSICAL EXAM: VITAL SIGNS: On day of discharge, blood pressure 120/74, heart rate of 70, respirati ons 16, O2 saturation 92% on 2 L/min. GENERAL: Patient seen by Dr. Ayala and noted to be sitting co mfortably in a chair. Alert and oriented. There was a small right temporal hematoma. LUNGS: Clear to auscultation. HEART: Regular rate and rhythm. EXTREMITIES: Left forearm is in a cast. ACTIVITY: The patient is being discharged to [facility] for rehab. DISCHARGE MEDICATIONS: Please see med reconciliation. FOLLOWUP INSTRUCTIONS: 1. Follow up with Neurosurgery. 2. Follow up with Ortho. /[id number]/MODL
== END 2018-04-12 14:30 ==
LOC: EDUNIT# → INTOOBSV 15:04 → F2N 17:04 → F3N 04-09 16:54
PROVIDERS: ADMIT Surgery; ATTEND Surgery
PROC: 30283B1 Transfusion of Nonautologous 4-Factor Prothrombin Complex Concentrate into Vein, Percutaneous Approach (ICD-10-PCS; principal; 2018-04-08)
DX: S06.5X1A Traumatic subdural hemorrhage with loss of consciousness of 30 minutes or less, initial encounter (principal); S00.03XA Contusion of scalp, initial encounter; M25.511 Pain in right shoulder; M25.551 Pain in right hip; R40.2411 Glasgow coma scale score 13-15, in the field [EMT or ambulance]; W01.0XXA Fall on same level from slipping, tripping and stumbling without subsequent striking against object, initial encounter; Y92.014 Private driveway to single-family (private) house as the place of occurrence of the external cause; Y93.89 Activity, other specified; Y99.8 Other external cause status; I50.9 Heart failure, unspecified; I48.91 Unspecified atrial fibrillation; E03.9 Hypothyroidism, unspecified; F32.9 Major depressive disorder, single episode, unspecified; Z79.01 Long term (current) use of anticoagulants; Z87.891 Personal history of nicotine dependence; Z96.643 Presence of artificial hip joint, bilateral; Z66 Do not resuscitate
CPT/HCPCS: 70450; 72125; 73030; 73502; 92507; 92523; 93005; 96365; 96375; 97116; 97162; 97166; 97530; 97535; 99291; C9132; G0378; G8978; G8979; G8987; G8988; G9168; G9169; J3430

== ENCOUNTER 2018-04-12 12:51 | Inpatient (IN) | payer OTHER ==
[2018-04-12] MEDS ORDERED: TEARS/DEXTRAN 70/HYPROMELLOSE 15 ML OPHT.BTL EACHEYE PRN (15:39)
--- NOTE | 2018-04-12 16:43 | GHP ---
[f rep st] HISTORY AND PHYSICAL POST ADMISSION PHYSICIAN EVALUATION AND REHABILITATION TREATMENT PLAN DATE OF ADMISSION: 04/12/2018 DATE OF EVALUATION: April 12, 2018 TIME OF EVALUATION: 1515 REFERRING FACILITY: [facility]. REFERRING PHYSICIAN: Dr. Webb IMPAIRMENT GROUP: 2.22. DATE OF ONSET: 04/08/2018 CONSULTING PHYSICIAN: She was seen by the trauma service, Dr. Plasencia, and the neurosurgery service, Dr. Avila. REHABILITATION DIAGNOSIS: Debility status post fall and traumatic brain injury. ETIOLOGIC DIAGNOSIS: Traumatic, closed injury. HISTORY OF PRESENT ILLNESS: This patient lost her balance while transitioning from the walker to the car. She landed on the right side of her body. She had a laceration on the right forehead and pain in the right hip when she arrived at the emergency department where she was brought by her daughter. She denied loss of consciousness, though she did not have good memory for the event. Head CT revealed minimal subdural hematoma in the right lateral temporal region, approximately 2.4 cm x 0.3 cm. She had a scalp hematoma which enlarged on subsequent CT scans. She had consultation with neurosurgery and with stable hematomas on repeat brain imaging, there was no indication for surgery. STUDIES AND LABS DURING HER STAY: Hip x-ray showed bilateral hip replacements with no fractures. Right shoulder x-ray showed no bony abnormalities, but there were possible interstitial lung abnormalities noticed. C-spine x-ray showed no fractures. She had a previous bony fusion C4-C6 with marked degenerative disk disease above and below and there was facet hypertrophy on the right at C2-C3, and bilaterally at C6-C7 and C7-T1. EKG showed atrial fibrillation, probable LVH, ST depression in the anterior to lateral leads and a borderline prolonged QT interval. CBC was normal, both on the day of admission 04/08/2018, and on the next day. Coagulation studies showed a therapeutic INR 2.32 on 04/08/2018, and INR had been normalized at 1.05 on 04/09. Serum chemistry showed a mildly elevated creatinine of 1.2 on 2017. Estimated GFR was 42. Otherwise, renal function was within normal limits and there was very little change in the next day, though presumably with hydration, the creatinine had improved from 1.2 to 0.7, and estimated GFR was greater than 60. Urinalysis was positive for nitrites, but there was no elevation of red blood cells or white blood cells. There was trace bacteria. There was no culture done. PRECAUTIONS: She is a fall risk. ACTIVE COMORBIDITIES: There are no tier 1, tier 2 or tier 3 comorbidities. PAST MEDICAL HISTORY: 1. Atrial fibrillation. 2. Congestive heart failure. 3. Hypertension. 4. Depression. 5. Hypothyroidism. 6. Left radius fracture approximately 2 weeks prior to admission. 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 PAST SURGICAL HISTORY: She has had the cervical spinal fusion and bilateral total hip arthroplasties. PRE-HOSPITAL MEDICATIONS: 1. Calcium carbonate with vitamin D 500 mg p.o. daily. 2. Furosemide 20 mg daily and 40 mg daily at noon. 3. Levothyroxine 100 mcg p.o. daily. 4. Sertraline 50 mg p.o. daily. 5. Acetaminophen 650 mg p.o. 6 hours p.r.n. 6. Famotidine 20 mg p.o. daily. 7. Losartan 50 mg p.o. daily. 8. Metoprolol 125 mg p.o. twice a day. 9. Warfarin 5 mg on Wednesday, Wednesday, Wednesday, and Wednesday and 2.5 mg on Wednesday , and Wednesday. 10. Digoxin 125 mcg p.o. daily. ADMISSION MEDICATIONS: 1. Acetaminophen 325 to 650 mg p.o. q.4 hours p.r.n. 2. Calcium carbonate with vitamin D 500 mg p.o. daily. 3. Digoxin 125 mcg p.o. daily. 4. Famotidine 20 mg p.o. daily. 5. Furosemide 40 mg q.a.m. and 20 mg daily at noon. 6. Levothyroxine 100 mcg p.o. daily. 7. Losartan 50 mg p.o. daily. 8. Metoprolol 125 mg p.o. twice daily. 9. Sertraline 50 mg p.o. daily. 10. Artificial Tears 2 drops each eye p.r.n. 11. Warfarin to be restarted on April 14, 2.5 mg p.o. q. Wednesday, and Wednesday and 5 mg p.o. q. Wednesday, Wednesday, Wednesday, and Wednesday. ALLERGIES: There is an allergy listed to lisinopril. PSYCHOSOCIAL HISTORY: She is a . She moved from [facility] to [place] after her . She has 2 daughters living in [place]. She lives in a penitentiary facility. There are no steps that she needs to climb. She has a history of smoking but quit 35 years ago. 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 FAMILY HISTORY: Noncontributory. REVIEW OF SYSTEMS: She denies pain. She has no headache. She has no vision changes. She has no difficulty swallowing. She has no weakness, numbness or tingling in the extremities. She has no fevers or chills. She denies cough or dyspnea. She sleeps well. She denies chest pain or palpitations. There is no nausea, vomiting, constipation, or diarrhea. There is no dysuria or urinary frequency. Otherwise, a 10-point review of systems is negative. PHYSICAL EXAM: VITAL SIGNS: Blood pressure is 94/62, heart rate is 83, respiratory rate is 17, oxygen saturation is 90% on room air. Temperature is 36.9 degrees centigrade. Her weight is 70.2 kg for a body mass index of 27.4. GENERAL: This is an overweight woman, appears her chronologic age, sitting up in a wheelchair, dressed in street clothes, cooperative and in no acute distress. HEENT: Extraocular movements are intact but she seems to lose track visually intermittently, in particular with moving the finger for up gaze and down gaze, and she has a slight deficit to accommodation on the left eye. Mucous membranes are moist. Dentition is in good condition. There are no oropharyngeal mucosal lesions. She has an uncrowded airway, Mallampati class 2. NECK: Supple. HEART: Irregularly irregular. There are no murmurs, rubs, or gallops. LUNGS: Clear to auscultation bilaterally. ABDOMEN: Soft, nontender, nondistended with normoactive bowel sounds and no hepatosplenomegaly. EXTREMITIES: There is no cyanosis, clubbing, or edema. Radial pulses are 2+ on the right, but could not be checked on the left due to the presence of a cast. Posterior tibialis pulses are 1+ bilaterally. NEUROLOGIC: She is alert and oriented x3. Cranial nerves 2-12 are grossly intact but for a deficit in eyebrow movement, and eye movement abnormalities discussed above. She has no eyebrow movement on the left. There is no focal weakness. Sensation is intact to light touch. SKIN: She has a hematoma approximately 3 x 3 cm on the right lateral frontal region. CURRENT LEVEL FUNCTION PER THE PRE-ADMISSION SCREEN: Diet, feeding and swallowing required setup. Grooming required minimal assist. She needed assist for bathing and dressing. Toileting required minimal to contact guard assist. Bed mobility required maximal assist. Transfers required minimal to contact guard assist. She used a front-wheeled walker. She needed minimal assist to contact assist for balance. She was able to ambulate 40 feet with contact guard assist. She was noted to have decreased problem solving, memory, and judgment. On the current exam, there are no significant changes from the pre-admission screen. IMPRESSION: This is an 87-year-old woman who suffered a fall on 04/08/2018, with head trauma. She has a subdural hematoma in the left lateral temporal region, which was stable on serial imaging with head CTs and did not require surgical intervention. She subjectively has some confusion. Two weeks prior to her hospitalization, she suffered a fall and a left radial fracture which was casted. She is allowed full weightbearing. She has comorbidities of hypertension and congestive heart failure. She was using oxygen for sleeping prior to her admission and has been using oxygen intermittently through her admission. She was noted to have a low blood pressure when first assessed on the inpatient rehabilitation unit, though previously, her blood pressure was adequately controlled, but with more highs, as high as 180/118 this morning in the hospital and occasionally lower, in the normal range, as low as 105/54. She has debility regarding mobility and activities of daily living. Her goal is to complete a rehabilitation stay and then return home with home health care and durable medical equipment as needed. For a safe discharge, it is expected she will achieve modified independence with mobility, activities of daily living, and medication management. There will be neurologic education for the patient and family and there will be family training. She will have therapy with physical therapy, occupational therapy, and speech and language pathology for 60 minutes per day for each discipline on 5-7 days of the week. Her expected duration of stay is 12-14 days. It is anticipated that upon discharge, she will continue to benefit from home health services including speech and language pathology, occupational therapy, and physical therapy. Additionally, she may benefit from a brain injury support group. PLAN: 1. Debility following fall, traumatic brain injury, and left subdural hematoma , with prior fall and left radius fracture. PT and OT to optimize mobility and activities of daily living toward the modified independent level. 2. 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 3. Hypertension, managed with metoprolol which also contributes to rate control , and losartan. Additionally, she has furosemide 40 mg in the morning and 20 mg at noon. I will add parameters for the furosemide and the losartan, but initially will continue with the metoprolol as it is currently dosed as it is effective for rate control. Will get a basic metabolic profile in the morning to assess her kidney function and hydration status. 4. Congestive heart failure appears overall to be compensated. She continues on her outpatient dose of furosemide, losartan, and metoprolol. Will add parameters as above. Will check brain natriuretic peptide level in the morning to further assess regarding adequacy of treatment of congestive heart failure. 5. Atrial fibrillation with anticoagulation contraindicated in the short term. Per hospital discharge instructions, will restart warfarin on April 14 and will have Pharmacy follow her INR. Continue digoxin 125 mcg daily. 6. Hypothyroidism. Continue levothyroxine. 7. History of depression. Continue sertraline. 8. Left radial fracture which also raises the question of osteoporosis. She is casted and she is allowed normal weightbearing. 9. 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 10. Prophylaxis. She is on famotidine which provides some level of gastrointestinal prophylaxis. She will resume warfarin starting March. She will have sequential compressive devices at night to reduce the likelihood of deep venous thrombosis. FOLLOW-UP. She is to see neurosurgeon, Dr. Avila, in approximately 2 weeks or the week of April 25. It is likely that she will discharge home prior to that followup. Will inquire of the office of orthopedic surgeon, Dr. Yap regarding follow up on her left radial fracture. /[id number]/MODL MTDD
[2018-04-12] MEDS: METOPROLOL TARTRATE 25 MG TAB PO SCH (21:38)
[2018-04-12] MEDS: METOPROLOL TARTRATE 100 MG TAB PO SCH (21:40)
[2018-04-13] MEDS: LEVOTHYROXINE 100 MCG TAB PO SCH (05:55)
[2018-04-13] MEDS: FAMOTIDINE 20 MG TAB PO SCH (09:33)
[2018-04-13] MEDS: CALCIUM CARB W/VIT D 500 MG TAB PO SCH (09:33)
[2018-04-13] MEDS: DIGOXIN 125 MCG TAB PO SCH (09:33)
[2018-04-13] MEDS: METOPROLOL TARTRATE 100 MG TAB PO SCH ×2 (09:33→20:22)
[2018-04-13] MEDS: METOPROLOL TARTRATE 25 MG TAB PO SCH ×2 (09:33→20:25)
[2018-04-13] MEDS: FUROSEMIDE 40 MG TAB PO SCH (09:33)
[2018-04-13] MEDS: SERTRALINE HCL 50 MG TAB PO SCH (09:34)
[2018-04-13] MEDS: LOSARTAN POTASSIUM 50 MG TAB PO SCH (09:34)
--- NOTE | 2018-04-13 09:55 | SOAPPROG ---
SOAP Progress Note Assessment/Plan: Assessment: Debility following fall, traumatic brain injury, and left subdural hematoma, with prior fall and left radius fracture. * PT and OT to optimize mobility and activities of daily living toward the modified independent level. 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 Hypertension, managed with metoprolol which also contributes to rate control, and losartan. Additionally, she has furosemide 40 mg in the morning and 20 mg at noon. * Added parameters for the furosemide and the losartan, but not for metoprolol as it is rate control. * Normal renal function and adequate hydration per BMP, 04/13/2018. Congestive heart failure appears overall to be compensated. * Elevated BNP 04/13/2018. No change in medications at present. Continue to monitor clinically. * Continue furosemide, losartan, and metoprolol. Atrial fibrillation with anticoagulation contraindicated in the short term. Per hospital discharge instructions, will restart warfarin on April 14 and will have Pharmacy follow her INR. Continue digoxin 125 mcg daily and metoprolol for rate control. Hypothyroidism. Continue levothyroxine. History of depression. Continue sertraline. Left radial fracture which also raises the question of osteoporosis. She is casted and she is allowed normal weightbearing. 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 Prophylaxis. She is on famotidine which provides some level of gastrointestinal prophylaxis. She will resume warfarin starting , March 15, 2018. She will have sequential compressive devices at night to reduce the likelihood of deep venous thrombosis. FOLLOW-UP. She is to see neurosurgeon, Dr. Avila, in approximately 2 weeks or the week of April 25. It is likely that she will discharge home prior to that followup. Will inquire of the office of orthopedic surgeon, Dr. Yap regarding follow up on her left radial fracture. 04/13/18 11:34 Subjective: No complaints. Slept well. No cough or dyspnea, no fevers or chills. Not in pain. Objective: Vital Signs Temp Pulse Resp BP Pulse Ox 36.6 C 71 18 150/80 H 93 04/13/18 06:30 04/13/18 09:33 04/13/18 08:00 04/13/18 09:34 04/13/18 08:00 04/12/18 04/13/18 04/14/18 05:59 05:59 05:59 Intake Total 240 480 Output Total 250 Balance -10 480 Physical Exam - Physical Exam General Appearance: WD/WN, alert, no apparent distress Respiratory: normal breath sounds, No crackles, No rhonchi, No wheezing Cardiac/Chest: irregularly irregular, No diastolic murmur, No systolic murmur Skin: normal color, warm/dry, other (Ecchymosis approximately 3 x 4 cm with approximately 2 cm area of eschar on right gnosticism) Extremities: other (Cast on left forearm/wrist) Neuro/Psych: no motor/sensory deficits, alert, normal mood/affect, oriented x 3 ICD10 Worksheet Patient Problems: Problems Problem Status Onset Acute decompensated heart failure Acute Anemia Acute Atrial fibrillation Acute Atrial fibrillation with RVR Acute Diastolic CHF, acute Acute Diastolic heart failure secondary to other etiology Acute Fatigue Acute Hypertension Acute Hypoxemia Acute Traumatic subdural hematoma Acute
[2018-04-13 10:06] LABS: PLATELET COUNT 238 10^3/uL (150-400)
--- NOTE | 2018-04-13 11:32 | PDOREHIP ---
Admission [facility] - Admission - 3 Day Assessment Period Admission Date/Day 1: 04/12/18 Day 2: 04/13/18 Day 3: 04/14/18 - Active Diagnoses Comorbidities and Co-existing Conditions at Admission: 73170. None of the Above - Skin Conditions Unhealed Pressure Ulcer (1 or more/Stage 1 or >)-Admission: 0. No
[2018-04-13] MEDS: FUROSEMIDE 20 MG TAB PO SCH (12:40)
[2018-04-14] MEDS: LEVOTHYROXINE 100 MCG TAB PO SCH (05:46)
[2018-04-14] MEDS ORDERED: WARFARIN SODIUM 5 MG TAB PO SCH ×2 (08:00→15:39)
[2018-04-14] MEDS: METOPROLOL TARTRATE 100 MG TAB PO SCH ×2 (08:21→20:18)
[2018-04-14] MEDS: FUROSEMIDE 40 MG TAB PO SCH (08:21)
[2018-04-14] MEDS: METOPROLOL TARTRATE 25 MG TAB PO SCH ×2 (08:21→20:17)
[2018-04-14] MEDS: CALCIUM CARB W/VIT D 500 MG TAB PO SCH (08:21)
[2018-04-14] MEDS: DIGOXIN 125 MCG TAB PO SCH (08:21)
[2018-04-14] MEDS: LOSARTAN POTASSIUM 50 MG TAB PO SCH (08:22)
[2018-04-14] MEDS: SERTRALINE HCL 50 MG TAB PO SCH (08:22)
[2018-04-14] MEDS: FAMOTIDINE 20 MG TAB PO SCH (08:22)
[2018-04-14 10:14] LABS: INR 1.05 (0.83-1.16); PROTIME(PATIENT) 13.9 SEC (12.0-15.0)
[2018-04-14] MEDS: FUROSEMIDE 20 MG TAB PO SCH (12:27)
[2018-04-14] MEDS: ACETAMINOPHEN 325 MG TAB PO PRN (12:57)
--- NOTE | 2018-04-14 14:05 | SOAPPROG ---
SOAP Progress Note Assessment/Plan: Assessment: Debility following fall, traumatic brain injury, and left subdural hematoma, with prior fall and left radius fracture. * PT and OT to optimize mobility and activities of daily living toward the modified independent level. 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 Hypertension, managed with metoprolol which also contributes to rate control, and losartan. Additionally, she has furosemide 40 mg in the morning and 20 mg at noon. * Added parameters for the furosemide and the losartan, but not for metoprolol as it is rate control. * Normal renal function and adequate hydration per BMP, 04/13/2018. Congestive heart failure appears overall to be compensated. * Elevated BNP 04/13/2018. No change in medications at present. Continue to monitor clinically. * Continue furosemide, losartan, and metoprolol. Atrial fibrillation with anticoagulation contraindicated in the short term. Per hospital discharge instructions, restarting warfarin today, April 14 and will have Pharmacy follow her INR. Continue digoxin 125 mcg daily and metoprolol for rate control. Hypothyroidism. Continue levothyroxine. History of depression. Continue sertraline. Left radial fracture which also raises the question of osteoporosis. She is casted and she is allowed normal weightbearing. 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 Prophylaxis. She is on famotidine which provides some level of gastrointestinal prophylaxis. She will resume warfarin starting , March 15, 2018. She will have sequential compressive devices at night to reduce the likelihood of deep venous thrombosis. FOLLOW-UP. She is to see neurosurgeon, Dr. Avila, in approximately 2 weeks or the week of April 25. It is likely that she will discharge home prior to that followup. Follow up with orthopedic surgeon Dr. Yap is scheduled for WednesdayApril 25 at 1:00 p.m. In [place] 04/14/18 14:01 Subjective: No complaints. Slept well. No cough or dyspnea, no fevers or chills. Has right hip pain where she thinks she injured herself when she fell. Objective: Vital Signs Temp Pulse Resp BP Pulse Ox 36.9 C 72 16 133/94 H 93 04/14/18 06:07 04/14/18 08:21 04/14/18 06:07 04/14/18 08:22 04/14/18 08:00 Laboratory Results 04/13/18 06:00 04/13/18 06:00 04/13/18 04/14/18 04/15/18 05:59 05:59 05:59 Intake Total 240 840 240 Output Total 250 525 Balance -10 315 240 PT 13.9 SEC (12.0-15.0) 04/14/18 06:00 INR 1.05 (0.83-1.16) 04/14/18 06:00 Physical Exam - Physical Exam General Appearance: WD/WN, alert, no apparent distress Respiratory: No respiratory distress, No accessory muscle use Skin: normal color, warm/dry Extremities: other (Tender over right proximal lateral femur) Neuro/Psych: no motor/sensory deficits, alert, normal mood/affect, oriented x 3 ICD10 Worksheet Patient Problems: Problems Problem Status Onset Acute decompensated heart failure Acute Anemia Acute Atrial fibrillation Acute Atrial fibrillation with RVR Acute Diastolic CHF, acute Acute Diastolic heart failure secondary to other etiology Acute Fatigue Acute Hypertension Acute Hypoxemia Acute Traumatic subdural hematoma Acute
[2018-04-14] MEDS: WARFARIN SODIUM 5 MG TAB PO SCH (16:30)
[2018-04-15] MEDS: LEVOTHYROXINE 100 MCG TAB PO SCH (06:44)
[2018-04-15 08:32] LABS: INR 1.05 (0.83-1.16); PROTIME(PATIENT) 13.9 SEC (12.0-15.0)
[2018-04-15] MEDS: DIGOXIN 125 MCG TAB PO SCH (09:46)
[2018-04-15] MEDS: CALCIUM CARB W/VIT D 500 MG TAB PO SCH (09:46)
[2018-04-15] MEDS: FUROSEMIDE 40 MG TAB PO SCH (10:36)
[2018-04-15] MEDS: FAMOTIDINE 20 MG TAB PO SCH (10:36)
[2018-04-15] MEDS: METOPROLOL TARTRATE 25 MG TAB PO SCH ×2 (10:37→20:50)
[2018-04-15] MEDS: LOSARTAN POTASSIUM 50 MG TAB PO SCH (10:37)
[2018-04-15] MEDS: METOPROLOL TARTRATE 100 MG TAB PO SCH ×2 (10:38→20:50)
[2018-04-15] MEDS: ACETAMINOPHEN 325 MG TAB PO PRN ×2 (10:38→23:45)
[2018-04-15] MEDS: SERTRALINE HCL 50 MG TAB PO SCH (10:38)
[2018-04-15] MEDS: FUROSEMIDE 20 MG TAB PO SCH (12:03)
--- NOTE | 2018-04-15 12:24 | SOAPPROG ---
SOAP Progress Note Assessment/Plan: Assessment: Debility following fall, traumatic brain injury, and left subdural hematoma, with prior fall and left radius fracture. * Initial functional independence measure 75 on 04/15/2018. Standby assist for bed mobility, standby assist to contact guard assist for transfers, ambulated 90 -100 feet with front wheeled walker slowly with contact guard assist to standby assist and cues. Grooming and hygiene are done standing with contact guard to standby assist, upper body dressing with setup and standby assist, lower body dressing with minimal assist. Shower transfer with contact guard assist in use , bathing with standby assist and cues. Toileting and toilet transfer with contact guard assist. * Continue PT and OT to optimize mobility and activities of daily living toward the modified independent level. 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 * SLUMS . Decreased executive function and memory. * Continue Speech and Language Pathology. Hypertension, managed with metoprolol which also contributes to rate control, and losartan. Additionally, she has furosemide 40 mg in the morning and 20 mg at noon. * Added parameters for the furosemide and the losartan, but not for metoprolol as it is rate control. * Normal renal function and adequate hydration per BMP, 04/13/2018. Congestive heart failure appears overall to be compensated. Diastolic, with preserved LV function. * Elevated BNP 04/13/2018. No change in medications at present. Continue to monitor clinically. * Continue furosemide, losartan, and metoprolol. Atrial fibrillation. Per hospital discharge instructions, restarted warfarin today, April 14. Pharmacy to follow her INR. Continue digoxin 125 mcg daily and metoprolol for rate control. Hypothyroidism. Continue levothyroxine. History of depression. Continue sertraline. Left radial fracture which also raises the question of osteoporosis. She is casted and she is allowed normal weightbearing. 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 Prophylaxis. She is on famotidine which provides some level of gastrointestinal prophylaxis. She will resume warfarin starting March. She will have sequential compressive devices at night to reduce the likelihood of deep venous thrombosis. FOLLOW-UP. She is to see neurosurgeon, Dr. Avila, in approximately 2 weeks or the week of April 25. It is likely that she will discharge home prior to that followup. Follow up with orthopedic surgeon Dr. Yap is scheduled for WednesdayApril 25 at 1:00 p.m. in [facility]. DISPOSITION: Attended staffing, 15 min. Discussed with case management, nursing, dietitian, PT, OT, CARTRIDGE ASSEMBLING MACHINE ADJUSTER. Plans to discharge home; daughters available to help. Discharge date set for 04/20/2018. Plan for family conference 2017. 04/15/18 12:16 Subjective: No complaints. Sleeping well. No cough or dyspnea, no fevers or chills. Right hip and shoulder pain are improving. Objective: Vital Signs Temp Pulse Resp BP Pulse Ox 36.9 C 85 18 149/94 H 93 04/15/18 08:00 04/15/18 09:46 04/15/18 08:00 04/15/18 08:00 04/15/18 08:00 Laboratory Results 04/13/18 06:00 04/13/18 06:00 04/14/18 04/15/18 04/16/18 05:59 05:59 05:59 Intake Total 840 1070 240 Output Total 525 Balance 315 1070 240 PT 13.9 SEC (12.0-15.0) 04/15/18 06:35 INR 1.05 (0.83-1.16) 04/15/18 06:35 - Time Spent With Patient Time Spent With Patient: Greater than 35 min floor time today, including more than 50% of time in coordination of care during staffing, and counseling patient. Physical Exam - Physical Exam General Appearance: WD/WN, alert, no apparent distress Respiratory: normal breath sounds, No crackles, No rhonchi, No wheezing Cardiac/Chest: regular rate, rhythm, No edema, No diastolic murmur, No systolic murmur Skin: normal color, warm/dry Neuro/Psych: alert, normal mood/affect, oriented x 3, abnormal gait (Slow, narrow based, with front wheeled walker.) ICD10 Worksheet Patient Problems: Problems Problem Status Onset Acute decompensated heart failure Acute Anemia Acute Atrial fibrillation Acute Atrial fibrillation with RVR Acute Diastolic CHF, acute Acute Diastolic heart failure secondary to other etiology Acute Fatigue Acute Hypertension Acute Hypoxemia Acute Traumatic subdural hematoma Acute
[2018-04-15] MEDS ORDERED: WARFARIN SODIUM 5 MG TAB PO ONE (16:00)
[2018-04-16] MEDS: LEVOTHYROXINE 100 MCG TAB PO SCH (06:15)
[2018-04-16] MEDS: FAMOTIDINE 20 MG TAB PO SCH (08:29)
[2018-04-16] MEDS: DIGOXIN 125 MCG TAB PO SCH (08:29)
[2018-04-16] MEDS: FUROSEMIDE 40 MG TAB PO SCH (08:29)
[2018-04-16] MEDS: CALCIUM CARB W/VIT D 500 MG TAB PO SCH (08:29)
[2018-04-16] MEDS: METOPROLOL TARTRATE 25 MG TAB PO SCH (08:30)
[2018-04-16] MEDS: LOSARTAN POTASSIUM 50 MG TAB PO SCH (08:30)
[2018-04-16] MEDS: METOPROLOL TARTRATE 100 MG TAB PO SCH (08:31)
[2018-04-16] MEDS: ACETAMINOPHEN 325 MG TAB PO PRN ×2 (08:31→21:12)
[2018-04-16] MEDS: SERTRALINE HCL 50 MG TAB PO SCH (08:31)
[2018-04-16 10:07] LABS: INR 1.11 (0.83-1.16); PROTIME(PATIENT) 14.5 SEC (12.0-15.0)
--- NOTE | 2018-04-16 12:57 | SOAPPROG ---
SOAP Progress Note Assessment/Plan: Assessment: Debility following fall, traumatic brain injury, and left subdural hematoma, with prior fall and left radius fracture. * Initial functional independence measure 75 on 04/15/2018. Standby assist for bed mobility, standby assist to contact guard assist for transfers, ambulated 90 -100 feet with front wheeled walker slowly with contact guard assist to standby assist and cues. Grooming and hygiene are done standing with contact guard to standby assist, upper body dressing with setup and standby assist, lower body dressing with minimal assist. Shower transfer with contact guard assist in use , bathing with standby assist and cues. Toileting and toilet transfer with contact guard assist. * Continue PT and OT to optimize mobility and activities of daily living toward the modified independent level. 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 * SLUMS . Decreased executive function and memory. * Continue Speech and Language Pathology. Hypertension, managed with metoprolol which also contributes to rate control, and losartan. Additionally, she has furosemide 40 mg in the morning and 20 mg at noon. * Added parameters for the furosemide and the losartan, but not for metoprolol as it is rate control. * Has had low blood pressure x2 in the evenings and metoprolol was held. Subsequently blood pressure is elevated in the mornings. * Normal renal function and adequate hydration per BMP, 04/13/2018 and 04/16/2018. * Change metoprolol from 125 mg twice daily to 75 mg twice daily. Continue to monitor. Congestive heart failure appears overall to be compensated. Diastolic, with preserved LV function. * Elevated BNP 04/13/2018. No change in medications at present. Continue to monitor clinically. * Continue furosemide, losartan, and metoprolol. Atrial fibrillation. Per hospital discharge instructions, restarted warfarin today, April 14. Pharmacy to follow her INR. Continue digoxin 125 mcg daily and metoprolol for rate control. Hypothyroidism. Continue levothyroxine. History of depression. Continue sertraline. Left radial fracture which also raises the question of osteoporosis. She is casted and she is allowed normal weightbearing. 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 Prophylaxis. She is on famotidine which provides some level of gastrointestinal prophylaxis. She will resume warfarin starting March. She will have sequential compressive devices at night to reduce the likelihood of deep venous thrombosis. FOLLOW-UP. She is to see neurosurgeon, Dr. Avila, in approximately 2 weeks or the week of April 25. It is likely that she will discharge home prior to that followup. Follow up with orthopedic surgeon Dr. Yap is scheduled for WednesdayApril 25 at 1:00 p.m. in [facility]. DISPOSITION: Plans to discharge home; daughters available to help. Discharge date set for 04/20/2018. Plan for family conference 04/19/2018. 04/16/18 12:55 Subjective: No complaints. Sleeping well. Not in pain. No cough or dyspnea. Increasingly ambulatory. Objective: Vital Signs Temp Pulse Resp BP Pulse Ox 36.7 C 72 16 158/76 H 91 L 04/16/18 06:45 04/16/18 08:31 04/16/18 06:45 04/16/18 08:31 04/16/18 06:45 Laboratory Results 04/13/18 06:00 04/16/18 06:40 04/15/18 04/16/18 04/17/18 05:59 05:59 05:59 Intake Total 1070 780 360 Output Total 1 Balance 1070 779 360 PT 14.5 SEC (12.0-15.0) 04/16/18 06:40 INR 1.11 (0.83-1.16) 04/16/18 06:40 Physical Exam - Physical Exam General Appearance: WD/WN, alert, no apparent distress Respiratory: No respiratory distress, No accessory muscle use Cardiac/Chest: No edema Skin: normal color, warm/dry Neuro/Psych: no motor/sensory deficits, alert, normal mood/affect, oriented x 3 , abnormal gait (Slow, with front wheeled walker, standby assist per staff. Tends to stay to the right side of the walker and collided with objects on right x1.) ICD10 Worksheet Patient Problems: Problems Problem Status Onset Acute decompensated heart failure Acute Anemia Acute Atrial fibrillation Acute Atrial fibrillation with RVR Acute Diastolic CHF, acute Acute Diastolic heart failure secondary to other etiology Acute Fatigue Acute Hypertension Acute Hypoxemia Acute Traumatic subdural hematoma Acute
[2018-04-16] MEDS: FUROSEMIDE 20 MG TAB PO SCH (14:45)
[2018-04-16] MEDS: WARFARIN SODIUM 5 MG TAB PO SCH (16:02)
[2018-04-16] MEDS: METOPROLOL TARTRATE 50 MG TAB PO SCH (21:12)
[2018-04-17] MEDS: LEVOTHYROXINE 100 MCG TAB PO SCH (06:21)
[2018-04-17] MEDS: ACETAMINOPHEN 325 MG TAB PO PRN ×3 (07:50→20:47)
[2018-04-17 08:29] LABS: INR 1.26 (0.83-1.16)
[2018-04-17] MEDS: METOPROLOL TARTRATE 50 MG TAB PO SCH ×2 (08:56→21:43)
[2018-04-17] MEDS: CALCIUM CARB W/VIT D 500 MG TAB PO SCH (08:57)
[2018-04-17] MEDS: LOSARTAN POTASSIUM 50 MG TAB PO SCH (08:58)
[2018-04-17] MEDS: FAMOTIDINE 20 MG TAB PO SCH (08:58)
[2018-04-17] MEDS: SERTRALINE HCL 50 MG TAB PO SCH (08:58)
[2018-04-17] MEDS: DIGOXIN 125 MCG TAB PO SCH (08:58)
[2018-04-17] MEDS: FUROSEMIDE 40 MG TAB PO SCH (08:58)
--- NOTE | 2018-04-17 12:04 | SOAPPROG ---
SOAP Progress Note Assessment/Plan: Assessment: Debility following fall, traumatic brain injury, and left subdural hematoma, with prior fall and left radius fracture. * Initial functional independence measure 75 on 04/15/2018. Standby assist for bed mobility, standby assist to contact guard assist for transfers, ambulated 90 -100 feet with front wheeled walker slowly with contact guard assist to standby assist and cues. Grooming and hygiene are done standing with contact guard to standby assist, upper body dressing with setup and standby assist, lower body dressing with minimal assist. Shower transfer with contact guard assist in use , bathing with standby assist and cues. Toileting and toilet transfer with contact guard assist. * Continue PT and OT to optimize mobility and activities of daily living toward the modified independent level. 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 * SLUMS . Decreased executive function and memory. * Continue Speech and Language Pathology. Hypertension, managed with metoprolol which also contributes to rate control, and losartan. Additionally, she has furosemide 40 mg in the morning and 20 mg at noon. * Added parameters for the furosemide and the losartan, but not for metoprolol as it contributes to rate control. * Has had low blood pressure x2 in the evenings and metoprolol was held. Subsequently blood pressure is elevated in the mornings. * Normal renal function and adequate hydration per BMP, 04/13/2018 and 04/16/2018. * Change metoprolol from 125 mg twice daily to 75 mg twice daily starting 2017. Continue to monitor. Congestive heart failure appears overall to be compensated. Diastolic, with preserved LV function. * Elevated BNP 04/13/2018. Continue to monitor clinically. * Continue furosemide, losartan, and metoprolol. Atrial fibrillation. Per hospital discharge instructions, restarted warfarin today, April 14. Pharmacy to follow her INR. Continue digoxin 125 mcg daily and metoprolol for rate control. Hypothyroidism. Continue levothyroxine. History of depression. Continue sertraline. Left radial fracture which also raises the question of osteoporosis. She is casted and she is allowed normal weightbearing. 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 Prophylaxis. She is on famotidine which provides some level of gastrointestinal prophylaxis. She resumed warfarin starting March. She will have sequential compressive devices at night to reduce the likelihood of deep venous thrombosis. FOLLOW-UP. She is to see neurosurgeon, Dr. Avila, in approximately 2 weeks or the week of April 25. It is likely that she will discharge home prior to that followup. Follow up with orthopedic surgeon Dr. Yap is scheduled for WednesdayApril 25 at 1:00 p.m. in [facility]. DISPOSITION: Plans to discharge home; daughters available to help. Discharge date set for 04/20/2018. Plan for family conference 04/19/2018. 04/17/18 12:02 Subjective: No complaints. Feels that she is functionally improving. Concerned regarding blood pressure. Objective: Vital Signs Temp Pulse Resp BP Pulse Ox 36.9 C 79 16 155/90 H 97 04/17/18 06:29 04/17/18 08:58 04/17/18 06:29 04/17/18 08:58 04/17/18 06:29 Laboratory Results 04/13/18 06:00 04/16/18 06:40 04/16/18 04/17/18 04/18/18 05:59 05:59 05:59 Intake Total 780 1080 360 Output Total 1 Balance 779 1080 360 PT 16.0 SEC (12.0-15.0) H 04/17/18 07:05 INR 1.26 (0.83-1.16) H 04/17/18 07:05 Physical Exam - Physical Exam General Appearance: WD/WN, alert, no apparent distress Respiratory: normal breath sounds, No crackles, No rhonchi, No wheezing Cardiac/Chest: regular rate, rhythm, No edema, No diastolic murmur, No systolic murmur Skin: normal color, warm/dry Neuro/Psych: alert, normal mood/affect, oriented x 3 ICD10 Worksheet Patient Problems: Problems Problem Status Onset Acute decompensated heart failure Acute Anemia Acute Atrial fibrillation Acute Atrial fibrillation with RVR Acute Diastolic CHF, acute Acute Diastolic heart failure secondary to other etiology Acute Fatigue Acute Hypertension Acute Hypoxemia Acute Traumatic subdural hematoma Acute
[2018-04-17] MEDS: FUROSEMIDE 20 MG TAB PO SCH (14:23)
[2018-04-17] MEDS ORDERED: WARFARIN SODIUM 5 MG TAB PO ONE (16:00)
[2018-04-17] MEDS: WARFARIN SODIUM 5 MG TAB PO SCH (16:29)
[2018-04-18] MEDS: LEVOTHYROXINE 100 MCG TAB PO SCH (05:32)
[2018-04-18 08:31] LABS: INR 1.36 (0.83-1.16); PROTIME(PATIENT) 16.9 SEC (12.0-15.0)
[2018-04-18] MEDS: SERTRALINE HCL 50 MG TAB PO SCH (08:53)
[2018-04-18] MEDS: FAMOTIDINE 20 MG TAB PO SCH (08:53)
[2018-04-18] MEDS: CALCIUM CARB W/VIT D 500 MG TAB PO SCH (08:53)
[2018-04-18] MEDS: ACETAMINOPHEN 325 MG TAB PO PRN ×2 (08:53→18:30)
[2018-04-18] MEDS: FUROSEMIDE 40 MG TAB PO SCH (08:54)
[2018-04-18] MEDS: DIGOXIN 125 MCG TAB PO SCH (08:57)
[2018-04-18] MEDS: METOPROLOL TARTRATE 50 MG TAB PO SCH ×2 (08:57→21:37)
[2018-04-18] MEDS: LOSARTAN POTASSIUM 50 MG TAB PO SCH (08:58)
[2018-04-18] MEDS: FUROSEMIDE 20 MG TAB PO SCH (12:44)
--- NOTE | 2018-04-18 14:18 | SOAPPROG ---
SOAP Progress Note Assessment/Plan: Assessment: Debility following fall, traumatic brain injury, and left subdural hematoma, with prior fall and left radius fracture. * Initial functional independence measure 75 on 04/15/2018. Standby assist for bed mobility, standby assist to contact guard assist for transfers, ambulated 90 -100 feet with front wheeled walker slowly with contact guard assist to standby assist and cues. Grooming and hygiene are done standing with contact guard to standby assist, upper body dressing with setup and standby assist, lower body dressing with minimal assist. Shower transfer with contact guard assist in use , bathing with standby assist and cues. Toileting and toilet transfer with contact guard assist. * Continue PT and OT to optimize mobility and activities of daily living toward the modified independent level. 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 * SLUMS . Decreased executive function and memory. * Continue Speech and Language Pathology. Hypertension, managed with metoprolol which also contributes to rate control, and losartan. Additionally, she has furosemide 40 mg in the morning and 20 mg at noon. * Added parameters for the furosemide and the losartan, but not for metoprolol as it contributes to rate control. * Has had low blood pressure x2 in the evenings and metoprolol was held. Subsequently blood pressure is elevated in the mornings. * Normal renal function and adequate hydration per BMP, 04/13/2018 and 04/16/2018. * Change metoprolol from 125 mg twice daily to 75 mg twice daily starting 2017. Continue to monitor. Congestive heart failure appears overall to be compensated. Diastolic, with preserved LV function. * Elevated BNP 04/13/2018. Continue to monitor clinically. * Continue furosemide, losartan, and metoprolol. Atrial fibrillation. Per hospital discharge instructions, restarted warfarin today, April 14. Pharmacy to follow her INR. Continue digoxin 125 mcg daily and metoprolol for rate control. Hypothyroidism. Continue levothyroxine. History of depression. Continue sertraline. Left radial fracture which also raises the question of osteoporosis. She is casted and she is allowed normal weightbearing. 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 Prophylaxis. She is on famotidine which provides some level of gastrointestinal prophylaxis. She resumed warfarin starting March. She will have sequential compressive devices at night to reduce the likelihood of deep venous thrombosis. FOLLOW-UP. She is to see neurosurgeon, Dr. Avila, in approximately 2 weeks or the week of April 25. It is likely that she will discharge home prior to that followup. Follow up with orthopedic surgeon Dr. Yap is scheduled for WednesdayApril 25 at 1:00 p.m. in [facility]. DISPOSITION: Plans to discharge home; daughters available to help. Discharge date set for 04/20/2018. Plan for family conference 04/19/2018. 04/18/18 14:17 Subjective: No complaints. Resting in bed after therapies. Not in pain. No fevers or chills. No cough or dyspnea. Objective: Vital Signs Temp Pulse Resp BP Pulse Ox 36.8 C 80 17 153/95 H 91 L 04/18/18 05:57 04/18/18 08:57 04/18/18 05:57 04/18/18 08:58 04/18/18 05:57 Laboratory Results 04/13/18 06:00 04/16/18 06:40 04/17/18 04/18/18 04/19/18 05:59 05:59 05:59 Intake Total 1080 2744 780 Balance 1080 2744 780 PT 16.9 SEC (12.0-15.0) H 04/18/18 06:20 INR 1.36 (0.83-1.16) H 04/18/18 06:20 Physical Exam - Physical Exam General Appearance: WD/WN, alert, no apparent distress Respiratory: No respiratory distress, No accessory muscle use Skin: normal color, warm/dry Neuro/Psych: no motor/sensory deficits, alert, normal mood/affect, oriented x 3 ICD10 Worksheet Patient Problems: Problems Problem Status Onset Acute decompensated heart failure Acute Anemia Acute Atrial fibrillation Acute Atrial fibrillation with RVR Acute Diastolic CHF, acute Acute Diastolic heart failure secondary to other etiology Acute Fatigue Acute Hypertension Acute Hypoxemia Acute Traumatic subdural hematoma Acute
[2018-04-18] MEDS: WARFARIN SODIUM 5 MG TAB PO SCH (16:45)
[2018-04-19] MEDS: LEVOTHYROXINE 100 MCG TAB PO SCH (05:40)
[2018-04-19] MEDS: ACETAMINOPHEN 325 MG TAB PO PRN ×2 (06:34→17:31)
[2018-04-19] MEDS: FUROSEMIDE 40 MG TAB PO SCH (08:12)
[2018-04-19] MEDS: DIGOXIN 125 MCG TAB PO SCH (08:12)
[2018-04-19] MEDS: CALCIUM CARB W/VIT D 500 MG TAB PO SCH (08:12)
[2018-04-19] MEDS: SERTRALINE HCL 50 MG TAB PO SCH (08:12)
[2018-04-19] MEDS: METOPROLOL TARTRATE 50 MG TAB PO SCH (08:12)
[2018-04-19] MEDS: FAMOTIDINE 20 MG TAB PO SCH (08:12)
[2018-04-19] MEDS: LOSARTAN POTASSIUM 50 MG TAB PO SCH (08:13)
[2018-04-19 09:09] LABS: INR 1.53 (0.83-1.16); PROTIME(PATIENT) 18.5 SEC (12.0-15.0)
[2018-04-19] MEDS: FUROSEMIDE 20 MG TAB PO SCH (12:32)
--- NOTE | 2018-04-19 12:38 | SOAPPROG ---
SOAP Progress Note Assessment/Plan: Assessment: Debility following fall, traumatic brain injury, and left subdural hematoma, with prior fall and left radius fracture. * Initial functional independence measure 75 on 04/15/2018. Standby assist for bed mobility, standby assist to contact guard assist for transfers, ambulated 90 -100 feet with front wheeled walker slowly, with contact guard assist to standby assist and cues. Grooming and hygiene are done standing with contact guard to standby assist, upper body dressing with setup and standby assist, lower body dressing with minimal assist. Shower transfer with contact guard assist in use, bathing with standby assist and cues. Toileting and toilet transfer with contact guard assist. * As of 04/19/2018, advanced to independent with bed mobility, distant standby assist for transfers. Ambulated 120 ft with front wheeled walker and distant supervision to standby assist. Climbed and descended 4 steps with bilateral rails and cues. Setup to modified independence with ADLs but needs some assistance for lower extremity dressing when fatigued. * Continue PT and OT to optimize mobility and activities of daily living toward the modified independent level. 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 * SLUMS . Decreased executive function and memory. * Continue Speech and Language Pathology. Hypertension, managed with metoprolol which also contributes to rate control, and losartan. Additionally, she has furosemide 40 mg in the morning and 20 mg at noon. * Added parameters for the furosemide and the losartan, but not for metoprolol as it contributes to rate control. * Has had low blood pressure x2 in the evenings and metoprolol was held. Subsequently blood pressure is elevated in the mornings. * Normal renal function and adequate hydration per BMP, 04/13/2018 and 04/16/2018. * Change metoprolol from 125 mg twice daily to 75 mg twice daily starting 2017. * Elevated blood pressures through the day and then low blood pressure at bedtime. Change metoprolol from 75 mg twice daily to 100 mg in the morning and 75 mg at HS starting 04/20/2018. Congestive heart failure appears overall to be compensated. Diastolic, with preserved LV function. * Elevated BNP 04/13/2018. Continue to monitor clinically. * Continue furosemide, losartan, and metoprolol. Atrial fibrillation. Per hospital discharge instructions, restarted warfarin today, April 14. Pharmacy to follow her INR. Continue digoxin 125 mcg daily and metoprolol for rate control. Hypothyroidism. Continue levothyroxine. History of depression. Continue sertraline. Left radial fracture which also raises the question of osteoporosis. She is casted and she is allowed normal weightbearing. 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 Prophylaxis. She is on famotidine which provides some level of gastrointestinal prophylaxis. She resumed warfarin starting March. She will have sequential compressive devices at night to reduce the likelihood of deep venous thrombosis. FOLLOW-UP. She is to see neurosurgeon, Dr. Avila, in approximately 2 weeks or the week of April 25. It is likely that she will discharge home prior to that followup. Follow up with orthopedic surgeon Dr. Yap is scheduled for WednesdayApril 25 at 1:00 p.m. in [facility]. She will see separations scientist Dr. Caro on 04/26/2018. Primary care provider is Dr. Robertson. DISPOSITION: Attended family conference, 30 min. Patient and 2 daughters were present. Discussed with case management, nursing, PT, OT, CHOIR SINGER Plans to discharge home; daughters available to help. She will need a bath bench, hand- held shower and grab bars, and she should sit to bathe. She should have assistance for critical tasks such as medication and financial analyst accountant. She had should have structure through the day with periods of activity in periods of rest. Discharge date set for 04/20/2018. 04/19/18 18:15 Subjective: No complaints. Sleeping well. Not in pain. No fevers or chills, no cough or dyspnea. Objective: Vital Signs Temp Pulse Resp BP Pulse Ox 36.6 C 78 18 166/98 H 91 L 04/19/18 08:00 04/19/18 08:12 04/19/18 08:00 04/19/18 08:13 04/19/18 08:00 Laboratory Results 04/13/18 06:00 04/16/18 06:40 04/18/18 04/19/18 04/20/18 05:59 05:59 05:59 Intake Total 2744 1120 Output Total 200 Balance 2744 920 PT 18.5 SEC (12.0-15.0) H 04/19/18 07:50 INR 1.53 (0.83-1.16) H 04/19/18 07:50 - Time Spent With Patient Time Spent With Patient: Greater than 35 min floor time today, including more than 50% of time in coordination of care and counseling of patient and daughters during family meeting. Physical Exam - Physical Exam General Appearance: WD/WN, alert, no apparent distress Respiratory: normal breath sounds, No crackles, No rhonchi, No wheezing Cardiac/Chest: regular rate, rhythm, No diastolic murmur, No systolic murmur Skin: normal color, warm/dry Extremities: other (Cast on left forearm and wrist) Neuro/Psych: no motor/sensory deficits, alert, normal mood/affect, oriented x 3 ICD10 Worksheet Patient Problems: Problems Problem Status Onset Acute decompensated heart failure Acute Anemia Acute Atrial fibrillation Acute Atrial fibrillation with RVR Acute Diastolic CHF, acute Acute Diastolic heart failure secondary to other etiology Acute Fatigue Acute Hypertension Acute Hypoxemia Acute Traumatic subdural hematoma Acute
--- NOTE | 2018-04-19 14:21 | PDOREHIP ---
Admission [facility] - Admission - 3 Day Assessment Period Admission Date/Day 1: 04/12/18 Day 2: 04/13/18 Day 3: 04/14/18 Discharge [facility] - Discharge - 3 Day Assessment Period 2 Days Prior to Anticipated Discharge Date: 04/18/18 1 Day Prior to Anticipated Discharge Date: 04/19/18 Anticipated Discharge Date: 04/20/18 - Discharge Skin Conditions Unhealed Pressure Ulcer (1 or more/Stage 1 or >)-Discharge: 0. No
[2018-04-19] MEDS ORDERED: WARFARIN SODIUM 5 MG TAB PO ONE (16:00)
[2018-04-19] MEDS ORDERED: MAG HYDROX/AL HYDROX/SIMETH 30 ML UDCUP PO PRN (19:51)
[2018-04-19] MEDS ORDERED: METOPROLOL TARTRATE 50 MG TAB PO SCH (21:00)
[2018-04-20] MEDS: LEVOTHYROXINE 100 MCG TAB PO SCH (06:06)
[2018-04-20] MEDS ORDERED: METOPROLOL TARTRATE 100 MG TAB PO SCH (09:00)
[2018-04-20 09:17] LABS: INR 1.54 (0.83-1.16); PROTIME(PATIENT) 18.6 SEC (12.0-15.0)
[2018-04-20] MEDS: CALCIUM CARB W/VIT D 500 MG TAB PO SCH (09:32)
[2018-04-20] MEDS: LOSARTAN POTASSIUM 50 MG TAB PO SCH (09:32)
[2018-04-20] MEDS: FAMOTIDINE 20 MG TAB PO SCH (09:32)
[2018-04-20] MEDS: DIGOXIN 125 MCG TAB PO SCH (09:32)
[2018-04-20] MEDS: SERTRALINE HCL 50 MG TAB PO SCH (09:32)
[2018-04-20] MEDS: FUROSEMIDE 40 MG TAB PO SCH (11:31)
[2018-04-20] MEDS: FUROSEMIDE 20 MG TAB PO SCH (12:26)
[2018-04-20 12:27] VITALS: BP 132/76
--- NOTE | 2018-04-20 17:16 | GDS ---
[f rep st] DISCHARGE SUMMARY ADMISSION DIAGNOSIS: Traumatic brain injury. DISCHARGE DIAGNOSIS: Traumatic brain injury. OTHER DISCHARGE DIAGNOSES: 1. Hypertension. 2. Atrial fibrillation. COMPLICATIONS: There were none. CONSULTATIONS: There were none. PROCEDURES: There were none. HISTORY/HOSPITAL COURSE: This patient was admitted from [facility] where she had presented on 04/08/2018, following a fall. She had head trauma, but no loss of consciousness. Head CT revealed minimal subdural hematoma in the right lateral temporal region, as well as a scalp hematoma. Further imaging ruled out any other any fractures. EKG showed atrial fibrillation for which she had been taking warfarin. Warfarin was held due to her intracranial bleed. She was medically stabilized and discharged for rehabilitation. She did well in the rehabilitation setting and mobility improved rapidly. She had a functional independence measure of 75 on 04/15/2018, which is consistent with fdc level of care; however, she needed only standby assist for bed mobility, and standby to contact guard assist for transfers and ambulation with a front-wheeled walker. She needed minimal assist for lower body dressing , but otherwise standby to contact guard assist for activities of daily living. As of 04/19/2018, she had advanced to independent with bed mobility and distant standby assist for transfers. She had walked 220 feet with a front- wheeled walker and distance supervision to standby assist. She was able to climb and descend 4 steps with bilateral rails. She required setup, but achieved modified independence with ADLs. She did, however, continue to require some assistance for lower extremity dressing when she was fatigued. She was noted to have cognitive impairment, likely due to her traumatic brain injury. A [facility] mental status exam was administered and she scored 18/30, which is consistent with cognitive impairment given her age and educational level. She was treated with metoprolol, losartan, and furosemide for hypertension and rate control, for atrial fibrillation and congestive heart failure. Her blood pressures were inconsistent, often elevated with systolic in the 150s, but at times low with a systolic as low as the 90s. She was never symptomatic with lightheadedness. Parameters were placed on losartan, but not on the metoprolol initially as it was useful for rate control. Low blood pressures were noted particularly in the evenings before bed and on multiple occasions, her evening metoprolol dose was not given. Ultimately, metoprolol was reduced to 100 mg in the morning and 75 mg in the evening. Blood pressures continued to be variable. It was hypothesized that she has poorly compressible arteries resulting in inaccurate blood pressure determinations as she was not symptomatic despite relatively high and relatively low blood pressures. She was continued on her medication regimen with the exception of reduced dose of metoprolol. She will need to follow up with primary care and Cardiology regarding optimal blood pressure management. Regarding atrial fibrillation, warfarin was restarted on April 14. She had a gradual increase in her INR, and on the day of discharge, INR is 1.54. DISCHARGE PLAN: 1. Condition upon discharge is good. 2. Discharge destination is home with her daughters available to help. 3. She will need a bath bench, handheld shower, and grab bars in the bathroom where she should sit to bathe. 4. 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 5. Finally, she was advised to maintain structure through the day with scheduled periods of activity and scheduled periods of rest. 6. Diet is regular. 7. Activity is ad christi with no weightbearing restrictions. DISCHARGE MEDICATIONS: 1. Acetaminophen 325 to 650 mg p.o. q.4 hours p.r.n. 2. Calcium carbonate with vitamin D 1 p.o. daily. 3. Digoxin 125 mcg p.o. daily. 4. Famotidine 20 mg p.o. daily. 5. Furosemide 40 mg p.o. q.a.m. and 20 mg daily at noon. 6. Levothyroxine 100 mcg p.o. daily. 7. Losartan 50 mg p.o. daily. 8. Metoprolol 100 mg q.a.m. and 75 mg at bedtime. 9. Sertraline 50 mg p.o. daily. 10. Artificial Tears p.r.n. 11. Warfarin 5 mg p.o. on Wednesday, Wednesday, Wednesday, and Wednesday and 2.5 mg on Wednesday, and Wednesday. ISSUES TO BE ADDRESSED AT FOLLOWUP: 1. Functional status: She will continue PT and OT at home. She can follow up with primary care provider regarding how she is doing in therapies. 2. Cognitive impairment, status post TBI. 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 3. Atrial fibrillation. She will continue to have daily INRs drawn until she is therapeutic and these results will be faxed to laborer aquatic life, Dr. Caro, for further orders. 4. Hypertension. She and her family were advised to pay more attention to symptoms of low blood pressure than to blood pressure numbers. She will follow up with Dr. Caro regarding optimal blood pressure management. It is of note that she did not have orthostatic hypotension during her rehabilitation stay. 5. Status post TBI. She has followup with neurosurgeon, Dr. Avila, the week of April 25. 6. History of radial fracture on the left prior to the fall that resulted in hospitalization. She has follow up with orthopedic surgeon, Dr. Yap, on Wednesday, April 25. /[id number]/MODL MTDD
[2018-04-21] MEDS ORDERED: WARFARIN SODIUM 5 MG TAB PO SCH (16:00)
== END 2018-04-20 13:42 | disposition home health service (06) | DRG 946 ==
LOC: BREH 14:52
PROVIDERS: ADMIT Internal Medicine; ATTEND Internal Medicine
PROC: F0636ZZ Communicative/Cognitive Integration Skills Treatment of Neurological System - Whole Body (ICD-10-PCS; principal; 2018-04-12)
PROC: F08Z7ZZ Vocational Activities and Functional Community or Work Reintegration Skills Treatment (ICD-10-PCS; principal; 2018-04-12)
PROC: F07M3ZZ Motor Function Treatment of Musculoskeletal System - Whole Body (ICD-10-PCS; principal; 2018-04-12)
DX: S06.5X1D Traumatic subdural hemorrhage with loss of consciousness of 30 minutes or less, subsequent encounter (principal); V47 Car occupant injured in collision with fixed or stationary object; S52.502D Unspecified fracture of the lower end of left radius, subsequent encounter for closed fracture with routine healing; Y92.014 Private driveway to single-family (private) house as the place of occurrence of the external cause; Y93.89 Activity, other specified; Y99.8 Other external cause status; R41.89 Other symptoms and signs involving cognitive functions and awareness; I48.91 Unspecified atrial fibrillation; I10 Essential (primary) hypertension; I50.9 Heart failure, unspecified; E03.9 Hypothyroidism, unspecified; M50.30 Other cervical disc degeneration, unspecified cervical region; G51.8 Other disorders of facial nerve; Z98.1 Arthrodesis status; Z96.643 Presence of artificial hip joint, bilateral; Z79.01 Long term (current) use of anticoagulants; Z87.891 Personal history of nicotine dependence
CPT/HCPCS: 92507-GN; 92523-GN; 97110-GO; 97110-GP; 97116-GP; 97161-GP; 97165-GO; 97530-GO; 97530-GP; 97535-GO; 99366-GN; 99366-GO; G0515-GO